=== PATIENT | female | born 1955 | race Caucasian/White ===

== ENCOUNTER → 2018-10-20 13:44 | Outpatient (CLI) | payer MEDICARE, SELFPAY ==
--- NOTE | 2018-10-20 13:54 | XR_ITS ---
XR chest 2V HISTORY: ITS.REASON: YEARLY [facility] SCREENING ORDERING PHYSICIAN: Irma Scott APRN PATIENT AGE: 63 years Technique: PA and lateral chest COMPARISON: No previous studies available for comparison FINDINGS: No focal pneumonia. No focal lesion However there isLess than optimal inspiration on both the PA and lateral view. This yields slight crowding markings at the lung bases particularly right infrahilar region and medial right lung base.. The diaphragm is only down to the the anterior fourth rib end on right. This Suboptimal inspiration slightly limits the study particularly on right base also note mild/moderate dextroscoliosis of the T-spine noted 15 to 20 degrees levocurvature mid T-spine, which may also contribute to the less expansion appearance right lung versus left . The erika and superior mediastinal structures appear appear satisfactory otherwise. No pleural effusion or pneumothorax. Normal pulmonary vascularity. Heart is upper normal in size borderline cardiomegaly but heart size is likely accentuated by less than optimal inspiration as well Chest wall unremarkable ribs unremarkable on this chest study. -------IMPRESSION Nothing definitely acute. Less than optimal inspiration, along with a mild levoscoliosis, crowd markings at right infrahilar region & medial right lung base-likely accounting for the current appearance here. Borderline cardiomegaly Heart size may also slightly accentuated by the suboptimal inspiration
== END ==
PROVIDERS: PCP Nurse Practitioner Family; Visit Provider Nurse Practitioner Family
DX: Z12.2 Encounter for screening for malignant neoplasm of respiratory organs (principal)
CPT/HCPCS: 71046

== ENCOUNTER 2019-08-03 10:00 | Outpatient (RCR) | payer MEDICARE, SELFPAY | END 2019-08-03 10:05 | disposition home or self-care (01) | LOC: OT 10:00 | PROVIDERS: PCP Nurse Practitioner Family; Visit Provider Orthopaedic Surgery | DX: S42.202D Unspecified fracture of upper end of left humerus, subsequent encounter for fracture with routine healing (principal) | CPT/HCPCS: 97014; 97110; 97140; 97164; 97166; G0283 ==

== ENCOUNTER 2020-04-28 13:17 | Emergency (ER) | payer MEDICARE, SELFPAY ==
[2020-04-28 13:40] VITALS: BP 161/65; PULSE 66; RESP 14; TEMP 36.2; O2SAT 97; BMI 28.3
--- NOTE | 2020-04-28 14:13 | HMH.EDUTC ---
[facility] [place] Impression: Exposure to COVID-19 virus Sinusitis Qualifiers: Sinusitis location: unspecified location Chronicity: acute Recurrence: non-recurrent Qualified Code(s): J01.90 - Acute sinusitis, unspecified Disposition: Home, Self-Care Condition on Discharge: Good Instructions: Sinusitis, DI for Sinusitis, Preventing the Spread of Coronavirus Discharge Instructions Additional Instructions: Drink plenty of fluids. Take tylenol or ibuprofen for pain or fever. Take the medications as directed. Follow up with your regular doctor. GO TO THE ER FOR ANY WORSENING SYMPTOMS Prescriptions: Benzonatate [Tessalon Perle 100mg Cap] 100 mg PO TIDP PRN #30 cap PRN Reason: Cough Transmission Status: Received by [id number] Azithromycin [Z-Gilberto 250mg Tab*] 250 mg PO UD DOSE PK #6 tab Transmission Status: Received by [id number] Referrals: Irma Scott APRN [Primary Care Provider] - Time of Disposition: 14:14 Medical Decision Making - Medical Records Medical records reviewed: No: I reviewed the patient's medical records. - Geoff Inquiry Pt receiving controlled substance: No Vital Signs: 04/28/20 13:40 04/28/20 14:16 Temperature 97.1 F L 97.1 F L Temperature Source Oral Pulse Rate 66 Pulse Rate [Right Brachial] 66 Respiratory Rate 14 14 Blood Pressure 161/65 H Blood Pressure [Right Arm] 161/65 H Blood Pressure Mean [Right Arm] 97 Blood Pressure Source [Right Arm] Automatic Cuff Blood Pressure Position [Right Arm] Sitting 02 Sat by Pulse Oximetry 97 Oxygen Delivery Method Room Air Orders (Tests/Meds): ORDERS Category Date Time Status Covid-19 Nasal PCR Sendout Tristan Routine Lab 04/28/20 13:30 [place] [facility] [place] - General Stated complaint: wants covid test Time Seen by Provider: 04/28/20 14:13 Mode of Arrival: Ambulatory Source of Information: Patient Limitations: No Limitations Description of Symptoms (Recalled from Triage Doc. by RN): PATIENT REQUESTING COVID TEST D/T EXPOSURE; C/O SINUS DRAINAGE HEENT Symptoms (Recalled from RN notes): Yes Resp Symptoms (Recalled from RN notes): No Skin Symptoms (Recalled from RN notes): No MS Symptoms (Recalled from RN notes): No Functional Status (Recalled from RN notes): WNL - History of Present Illness Provider Complaint: She c/o sinus congestion and left ear pain for the past 2 days. - Related Data Previous Rx's Medication Instructions Recorded Azithromycin [Z-Gilberto 250mg Tab*] 250 mg PO UD DOSE PK #6 tab 04/28/20 Benzonatate [Tessalon Perle 100mg 100 mg PO TIDP PRN #30 cap 04/28/20 Cap] Allergies Allergy/AdvReac Type Severity Reaction Status Date / Time No Known Allergies Allergy Verified 04/28/20 14:08 - Worker's Comp Is this a Worker's Comp case?: No [facility] History - Hepatitis A Screen Drug use history?: No High risk sexual behaviors?: No History of sexually transmitted infection?: No Currently employed?: No Childcare worker?: No Do you have indoor plumbing?: Yes Do you have electricity?: Yes Attestation statement:: This patient has been screened for Hepatitis A risk factors. I have reviewed the patient's past medical history: Yes - Social History Alcohol Intake: never Occupational Status: other ROS Obtained: Yes All systems reviewed & no additional complaints - Constitutional Constitutional: Reports chills, Denies fever(s), Reports poor appetite, Reports malaise - Eyes Eyes: Denies eye discharge - ENT Ears, Nose, Mouth, and Throat: Reports as per HPI - Cardiovascular Cardiovascular: Denies chest pain - Respiratory Respiratory: No chest congestion, Yes cough, No dyspnea, No stridor, No wheezing - Gastrointestinal Gastrointestingal: Denies: abdominal pain, diarrhea, nausea, vomiting Physical Exam - General General appearance: alert, in no apparent distress - Head Head exam: atraumatic, normocephalic, normal inspection - Eye E
[2020-04-28 14:16] VITALS: BP 161/65; PULSE 66; RESP 14; TEMP 36.2; O2SAT 97
[2020-04-29 13:13] LABS: Covid-19 Nasal PCR Sendout Lex NOT DETECTED
== END 2020-04-28 14:22 | disposition home or self-care (01) ==
PROVIDERS: Emergency Provider Nurse Practitioner Family; PCP Nurse Practitioner Family
DX: Z20.828 Contact with and (suspected) exposure to other viral communicable diseases (principal); J01.90 Acute sinusitis, unspecified
CPT/HCPCS: G0463; 99201; U0004

== ENCOUNTER 2020-05-03 11:06 | Emergency (ER) | payer MEDICARE, SELFPAY ==
[2020-05-03 11:30] VITALS: BP 132/85; PULSE 89; RESP 20; TEMP 36.8; O2SAT 98; BMI 28.3
[2020-05-03 11:53] VITALS: BP 132/85; PULSE 89; RESP 20; TEMP 36.8; O2SAT 98
--- NOTE | 2020-05-03 11:56 | HMH.EDUTC ---
[facility] [place]ression: Exposure to COVID-19 virus Disposition: Home, Self-Care Condition on Discharge: Good Instructions: Preventing the Spread of Coronavirus Discharge Instructions Additional Instructions: isolate until test results if symptoms worsen return or be seen in ed Referrals: Irma Scott APRN [Primary Care Provider] - Time of Disposition: 12:06 Medical Decision Making - Geoff Inquiry Pt receiving controlled substance: No Vital Signs: 05/03/20 11:30 05/03/20 11:53 Temperature 98.3 F 98.3 F Temperature Source Oral Pulse Rate 89 Pulse Rate [Left Brachial] 89 Respiratory Rate 20 20 Blood Pressure 132/85 Blood Pressure [Left Arm] 132/85 Blood Pressure Mean [Left Arm] 100 Blood Pressure Source [Left Arm] Automatic Cuff Blood Pressure Position [Left Arm] Sitting 02 Sat by Pulse Oximetry 98 Oxygen Delivery Method Room Air Orders (Tests/Meds): ORDERS Category Date Time Status Covid-19 Nasal PCR ([facility]) Routine Lab 05/03/20 11:55 Ordered [facility] [place] - General Chief complaint: [facility] Stated complaint: exposed with headache,cough,fever Time Seen by Provider: 05/03/20 11:56 Mode of Arrival: Ambulatory Source of Information: Patient Limitations: No Limitations Description of Symptoms (Recalled from Triage Doc. by RN): PATIENT REQUESTING COVID TEST D/T EXPOSURE; C/O DRY COUGH, HEADACHE, FEVER, CONGESTION, SORE THROAT, SOA, AND NAUSEA SINCE TUESDAY HEENT Symptoms (Recalled from RN notes): Yes Resp Symptoms (Recalled from RN notes): Yes Skin Symptoms (Recalled from RN notes): No MS Symptoms (Recalled from RN notes): No Functional Status (Recalled from RN notes): WNL - History of Present Illness Provider Complaint: 64 yr old female presents for covid test. Pt states she was in a few days ago with her boyfriend and she tested neg and he was positive. pt states she had a headache, sore throat and fever. - Related Data Home Medications Medication Instructions Recorded Confirmed Oxybutynin Chloride [Ditropan 5mg 5 mg PO DAILY 05/03/20 05/03/20 tablet] Simvastatin [Zocor 40mg] 40 mg PO HS 05/03/20 05/03/20 hydroCHLOROthiazide [HCTZ 12.5mg 12.5 mg PO DAILY 05/03/20 05/03/20 cap] Allergies Allergy/AdvReac Type Severity Reaction Status Date / Time No Known Allergies Allergy Verified 04/28/20 14:08 - Worker's Comp Is this a Worker's Comp case?: No [facility] History - Hepatitis A Screen Drug use history?: No High risk sexual behaviors?: No History of sexually transmitted infection?: No Currently employed?: No Childcare worker?: No Do you have indoor plumbing?: Yes Do you have electricity?: Yes Attestation statement:: This patient has been screened for Hepatitis A risk factors. I have reviewed the patient's past medical history: Yes - Social History Alcohol Intake: never Occupational Status: other ROS Obtained: Yes Systems reviewed as appropriate & no additional complaints - Constitutional Constitutional: Reports system reviewed and no additional complaints, except as docu, Reports body ache, Reports fever(s) - Eyes Eyes: Reports system reviewed and no additional complaints, except as docu, Denies dry eyes - ENT Ears, Nose, Mouth, and Throat: Reports system reviewed and no additional complaints, except as docu, Reports headache(s), Reports sore throat - Cardiovascular Cardiovascular: Reports system reviewed and no additional complaints, except as docu, Denies chest pain - Respiratory Respiratory: Yes system reviewed and no additional complaints, except as docu, No change in phlegm color - Gastrointestinal Gastrointestingal: Reports: system reviewed and no additional complaints, except as docu. Denies: nausea - Genitourinary Female Genitourinary: Reports system reviewed and no additional complaints, except as docu - Musculoskeletal Musculoskeletal: Reports system reviewed and no additional complaints
--- NOTE | 2020-05-03 17:33 | PC.NURSE ---
patient notified of positive covid results
== END 2020-05-03 12:12 | disposition home or self-care (01) ==
PROVIDERS: Emergency Provider Nurse Practitioner Family; PCP Nurse Practitioner Family
DX: U07.1 COVID-19 (principal); E78.5 Hyperlipidemia, unspecified
CPT/HCPCS: G0463; 99201; U0003

== ENCOUNTER → 2020-10-07 15:19 | Outpatient (CLI) | payer MEDICARE, SELFPAY ==
--- NOTE | 2020-10-07 15:30 | XR_ITS ---
PROCEDURE: XR LUMBAR SPINE MIN 4V CLINICAL INDICATION: LOW BACK PAIN COMPARISON: No exams were available for comparison FINDINGS: No acute fractures or traumatic subluxation. Multilevel degenerative changes of the lumbar spine with endplate sclerosis, loss of disc height, facet joint arthropathy and anterior osteophyte formation. Bone density is normal. Paravertebral soft tissues are unremarkable. IMPRESSION: Degenerative changes of the lumbar spine. No acute fractures or listhesis. Dictated by: Liliane Joseph 10/07/2020 16:50 Liliane Joseph in [place] 10/07/2020 16:50
--- NOTE | 2020-10-07 15:30 | XR_ITS ---
PROCEDURE: XR HIP LT 2-3V W/PELVIS CLINICAL INDICATION: NOÉ HIP PAIN COMPARISON: No exams were available for comparison FINDINGS: No fracture or dislocation is evident. No significant degenerative change. No lytic or blastic change. Unremarkable soft tissues. Degenerative changes of the visualized lumbar spine. Moderate fecal retention of the rectosigmoid colon. IMPRESSION: No acute findings. Dictated by: Liliane Joseph 10/07/2020 16:51 Liliane Joseph in [facility] 10/07/2020 16:51
--- NOTE | 2020-10-07 15:30 | XR_ITS ---
PROCEDURE: XR KNEE RT 3V CLINICAL INDICATION: RT KNEE PAIN COMPARISON: No exams were available for comparison FINDINGS: No fracture or dislocation. No lytic or blastic change. There is normal mineralization. Tricompartmental degenerative changes with the loss of joint space, worse in the medial compartment, and osteophyte formation. Small suprapatellar joint effusion. Soft tissues are otherwise unremarkable. Other findings:None. IMPRESSION: Degenerative changes of the right knee joint, worse in the medial compartment. Dictated by: Liliane Joseph 10/07/2020 16:52 Liliane Joseph in [facility] 10/07/2020 16:52
--- NOTE | 2020-10-07 15:30 | XR_ITS ---
PROCEDURE: XR HIP RT 2-3V W/PELVIS CLINICAL INDICATION: NOÉ HIP PAIN COMPARISON: No exams were available for comparison FINDINGS: No fracture or dislocation is evident. Minor subchondral sclerosis. No significant degenerative change. No lytic or blastic change. Unremarkable soft tissues. IMPRESSION: No acute findings. Dictated by: Liliane Joseph 10/07/2020 16:50 Liliane Joseph in [facility] 10/07/2020 16:50
== END ==
PROVIDERS: PCP Nurse Practitioner Family; Visit Provider Nurse Practitioner Family
DX: M54.42 Lumbago with sciatica, left side (principal); M25.552 Pain in left hip; M25.551 Pain in right hip; M25.561 Pain in right knee
CPT/HCPCS: 72110; 73502; 73562

== ENCOUNTER → 2020-10-17 08:27 | Outpatient (CLI) | payer MEDICARE, SELFPAY ==
--- NOTE | 2020-10-17 08:31 | MR_ITS ---
PROCEDURE INFORMATION: Exam: MR Right Lower Extremity Joint Without Contrast, Knee Exam date and time: 10/17/2020 8:31 AM Age: 65 years old Clinical indication: Pain; Knee; Right; Prior surgery; Surgery date: 6+ months; Additional info: RT knee pain S/P knee surgery. PT C/O anterior and posterior RT knee pain with HX of surgery to repair torn cartilage in the RT knee 30 + years ago. PT denies recent injury or trauma but does have HX of multiple injuries to the RT knee in the past. Prior RT knee xrays done 10/07/2020 TECHNIQUE: Imaging protocol: MR of the Right lower extremity joint without contrast. Exam focused on the knee. COMPARISON: CR XR KNEE RT 3V 10/07/2020 3:38 PM FINDINGS: Bones/joints: No acute fracture. No dislocation. Anterior translation of tibia with respect to femur. Mild degenerative changes of patellofemoral compartment, characterized by small marginal osteophytes, mild signal changes/minimal surface fibrillation of cartilage lining patella. Moderate to severe degenerative changes of medial femorotibial compartment, characterized by mild joint space narrowing, small marginal osteophytes, complete denudation of cartilage lining medial femoral condyle and medial tibial plateau, mild subchondral edema. Early degenerative changes of lateral femorotibial compartment, characterized by mild signal changes within articular cartilage lining lateral femoral condyle and lateral tibial plateau. Fluid: Small to moderate joint effusion with several small intraarticular bodies. Large Hurd's cyst, roughly 8.0 x 4.1 x 5.2 cm. Medial meniscus: Extensive maceration/truncation of anterior horn, body, posterior horn Lateral meniscus: Intrasubstance signal abnormality. No definite tear. Anterior cruciate ligament: Nonvisualization of ligament. Posterior cruciate ligament: Intact. Medial capsule and supporting structures: Intact. Lateral capsule and supporting structures: Intact. Extensor mechanism of knee: Intact. Muscles: Unremarkable. Soft tissues: Mild edema within subcutaneous tissues. IMPRESSION: 1. Tricompartment osteoarthritis, most pronounced within medial femorotibial compartment. 2. Medial meniscus tear. 3. ACL tear, chronic. 4. Joint effusion with intraarticular bodies. 5. Hurd's cyst.
--- NOTE | 2020-10-17 09:46 | US_ITS ---
PROCEDURE: US THYROID CLINICAL INDICATION: THYROMEGALY COMPARISON: No exams were available for comparison FINDINGS: Right lobe: 4.5 x 2 x 2.2 cm. 4 mm isoechoic nodule upper pole. Left lobe: 4.7 x 1.7 x 1.9 cm. 5 mm isoechoic nodule with peripheral hypoechoic halo upper pole. There is some heterogeneous echogenicity of the left lobe. 1 x 0.5 cm isoechoic nodule lower pole TR 2. Isthmus: Unremarkable Additional findings: IMPRESSION: Mildly enlarged thyroid gland on both sides. Bilateral small TR 2 nodules. Twelve month follow-up suggested. Dictated by: Hitesh Mayes MD 10/18/2020 07:36 Hitesh Mayes MD in [place] 10/18/2020 07:36
== END ==
PROVIDERS: PCP Nurse Practitioner Family; Visit Provider Nurse Practitioner Family
DX: M25.561 Pain in right knee (principal); Z98.890 Other specified postprocedural states; E01.0 Iodine-deficiency related diffuse (endemic) goiter
CPT/HCPCS: 73721; 76536

== ENCOUNTER 2021-08-28 16:35 | Emergency (ER) | payer MEDICARE, SELFPAY ==
[2021-08-28 16:36] VITALS: BP 166/119; PULSE 79; RESP 16; TEMP 36.6; O2SAT 98; BMI 29.1
--- NOTE | 2021-08-28 16:59 | CT_ITS ---
PROCEDURE INFORMATION: Exam: CT Maxillofacial Without Contrast Exam date and time: 08/28/2021 5:22 PM Age: 65 years old Clinical indication: Injury or trauma; Fall; Blunt trauma (contusions or hematomas); Cheek bone and head/scalp and lip/oral cavity; Without loss of consciousness; Upper; Injury date: 08/28/2021; Injury details: Patient feel face first onto concrete; Swelling/bleeding at right side of face; Additional info: Fall, injury TECHNIQUE: Imaging protocol: Computed tomography images of the face without contrast. Radiation optimization: All CT scans at this facility use at least one of these dose optimization techniques: automated exposure control; mA and/or kV adjustment per patient size (includes targeted exams where dose is matched to clinical indication); or iterative reconstruction. COMPARISON: CT HEAD/BRAIN WO CON 08/28/2021 5:19 PM FINDINGS: Orbital cavities: Orbits are normal. Globes are unremarkable. Bones/joints: No acute fracture. Paranasal sinuses: Normal. No air-fluid levels. Soft tissues: Right supraorbital subgaleal hematoma. IMPRESSION: Right supraorbital subgaleal hematoma.
--- NOTE | 2021-08-28 16:59 | CT_ITS ---
PROCEDURE INFORMATION: Exam: CT Cervical Spine Without Contrast Exam date and time: 08/28/2021 5:26 PM Age: 65 years old Clinical indication: Injury or trauma; Fall; Blunt trauma; Injury date: 08/28/2021; Injury details: Patient feel face first onto concrete; Swelling/bleeding at right side of face; Additional info: Fall, injury TECHNIQUE: Imaging protocol: Computed tomography images of the cervical spine without contrast. Radiation optimization: All CT scans at this facility use at least one of these dose optimization techniques: automated exposure control; mA and/or kV adjustment per patient size (includes targeted exams where dose is matched to clinical indication); or iterative reconstruction. COMPARISON: CT FACIAL BONES WO CON 08/28/2021 5:22 PM FINDINGS: Vertebrae: No acute fracture. Normal alignment. C2-C3: No significant disc protrusion. No severe spinal canal stenosis. No significant neural foraminal narrowing. C3-C4: Severe disc space narrowing. Mild disc protrusion. No severe spinal canal stenosis. No significant neural foraminal narrowing. C4-C5: No significant disc protrusion. No severe spinal canal stenosis. No significant neural foraminal narrowing. C5-C6: Severe disc space narrowing. No significant disc protrusion. No severe spinal canal stenosis. No significant neural foraminal narrowing. C6-C7: Severe disc space narrowing. No significant disc protrusion. No severe spinal canal stenosis. No significant neural foraminal narrowing. C7-T1: No significant disc protrusion. No severe spinal canal stenosis. No significant neural foraminal narrowing. Soft tissues: Unremarkable. Lungs: Lung apices are normal. IMPRESSION: 1. No acute traumatic findings. 2. Degenerative discs C3-C4, C5-C6, and C6-C7.
--- NOTE | 2021-08-28 16:59 | CT_ITS ---
PROCEDURE INFORMATION: Exam: CT Head Without Contrast Exam date and time: 08/28/2021 5:19 PM Age: 65 years old Clinical indication: Injury or trauma; Fall; Blunt trauma (contusions or hematomas); Consciousness not specified; Patient HX: Abrasion to right cheek and eyebrow; Additional info: Fall, injury TECHNIQUE: Imaging protocol: Computed tomography of the head without contrast. Radiation optimization: All CT scans at this facility use at least one of these dose optimization techniques: automated exposure control; mA and/or kV adjustment per patient size (includes targeted exams where dose is matched to clinical indication); or iterative reconstruction. COMPARISON: CR ALBERT FACIAL BONES 3 VIEWS 03/24/2017 3:12 PM FINDINGS: Brain: No acute traumatic intracranial injury detected. Cerebral ventricles: No ventriculomegaly. Paranasal sinuses: Visualized sinuses are unremarkable. No fluid levels. Mastoid air cells: Visualized mastoid air cells are well aerated. Bones/joints: Unremarkable. No acute fracture. Soft tissues: Right supraorbital subgaleal hematoma. IMPRESSION: 1. Right supraorbital subgaleal hematoma. 2. No acute traumatic intracranial injury detected.
[2021-08-28 17:00] VITALS: BP 179/112; PULSE 77; RESP 19; O2SAT 97
--- NOTE | 2021-08-28 17:11 | HMH.EDGENADL ---
ED Disposition Clinical Impression: Facial contusion Qualifiers: Encounter type: initial encounter Qualified Code(s): S00.83XA - Contusion of other part of head, initial encounter Facial hematoma Qualifiers: Encounter type: initial encounter Qualified Code(s): S00.83XA - Contusion of other part of head, initial encounter Contusion of left hand Qualifiers: Encounter type: initial encounter Qualified Code(s): S60.222A - Contusion of left hand, initial encounter Lip laceration Qualifiers: Encounter type: initial encounter Qualified Code(s): S01.511A - Laceration without foreign body of lip, initial encounter Disposition: Home, Self-Care Condition on Discharge: Good Instructions: DI for Closed Head Injury Additional Instructions: Ice 20 minutes 4 times a day to facial swelling. Sleep with head of bed elevated tonight. Tylenol or ibuprofen for pain. Clean wounds with soap and water daily. Apply antibiotic ointment to facial abrasions. Additional instructions for HEAD INJURY: See your physician as soon as possible for further evaluation. Return immediately if severe headache, vomiting, problems with vision or speech, numbness or weakness of the extremities, or severe neck pain. Referrals: Irma Scott APRN [Primary Care Provider] - - Critical Care Critical Care Time: No Attestation: On 08/28/21, the high probability of a clinically significant, sudden or life threatening deterioration of the following system(s) required my full and direct attention, intervention and personal management. The time I documented below is in addition to time spent performing reported procedures but includes the following listed in this critical care notation. Medical Decision Making - Geoff Inquiry Pt receiving controlled substance: No Vital Signs: 08/28/21 16:36 08/28/21 17:00 08/28/21 17:54 Temperature 97.8 F Temperature Source Oral Pulse Rate 77 79 Pulse Rate [Right Radial] 79 Respiratory Rate 16 19 16 Blood Pressure 179/112 H 194/111 H Blood Pressure [Right Arm] 166/119 H Blood Pressure Mean 135 126 Blood Pressure Mean [Right Arm] 134 Blood Pressure Source [Right Arm] Automatic Cuff Blood Pressure Position [Right Arm] Sitting 02 Sat by Pulse Oximetry 98 97 98 Oxygen Delivery Method Room Air 08/28/21 18:10 Temperature Temperature Source Pulse Rate 71 Pulse Rate [Right Radial] Respiratory Rate 18 Blood Pressure 163/98 H Blood Pressure [Right Arm] Blood Pressure Mean 119 Blood Pressure Mean [Right Arm] Blood Pressure Source [Right Arm] Blood Pressure Position [Right Arm] 02 Sat by Pulse Oximetry 98 Oxygen Delivery Method - Radiology Data #1 Image(s): Hand Image Reviewed: Yes I have reviewed radiologist's interpretation Procedure(s): XR hand LT min 3V Accession Number(s): [id number] cc: Eleazar Porter DO; Irma Scott APRN~ PROCEDURE INFORMATION: Exam: XR Left Hand Exam date and time: 08/28/2021 5:28 PM Age: 65 years old Clinical indication: Pain; Hand; Left; Additional info: Fall TECHNIQUE: Imaging protocol: XR Left hand. Views: 3 or more views. COMPARISON: No relevant prior studies available. FINDINGS: Bones/joints: There is no evidence of acute fracture. There is no evidence of joint malalignment or dislocation. Mild degenerative changes of the 1st carpometacarpal joint. Soft tissues: No soft tissue swelling. IMPRESSION: 1. No evidence of acute fracture. 2. No evidence of acute dislocation. 3. Mild degenerative changes of the 1st carpometacarpal joint. - CT Data CT Scan: Head, C-Spine, Other (facial) Time Received: 18:[address] Reviewed: Yes: I have viewed the radiologist's interpretation Findings Narrative: PROCEDURE INFORMATION: Exam: CT Head Without Contrast Exam date and time: 08/28/2021 5:19 PM Age: 65 years old Clinical in
[2021-08-28 17:54] VITALS: BP 194/111; PULSE 79; RESP 16; O2SAT 98
[2021-08-28 18:10] VITALS: BP 163/98; PULSE 71; RESP 18; O2SAT 98
[2021-08-28 18:30] VITALS: BP 171/100; PULSE 73; RESP 16; O2SAT 98
[2021-08-28 18:38] VITALS: BP 161/93; PULSE 76; RESP 16; TEMP 36.9; O2SAT 97
== END 2021-08-28 18:43 | disposition home or self-care (01) ==
PROVIDERS: Emergency Provider Emergency Medicine; PCP Nurse Practitioner Family
DX: S00.83XA Contusion of other part of head, initial encounter (principal); S60.222A Contusion of left hand, initial encounter; S01.511A Laceration without foreign body of lip, initial encounter; W01.0XXA Fall on same level from slipping, tripping and stumbling without subsequent striking against object, initial encounter; Y92.014 Private driveway to single-family (private) house as the place of occurrence of the external cause
CPT/HCPCS: 70450; 70486; 72125; 73130; 99284

== ENCOUNTER → 2021-09-17 14:18 | Outpatient (CLI) | payer MEDICARE, SELFPAY ==
--- NOTE | 2021-09-17 14:24 | XR_ITS ---
FINAL REPORT CLINICAL HISTORY: pain FINDINGS: RIGHT FOOT Three views of the right foot demonstrate no acute fracture or dislocation. There is severe degenerative change at the 1st metatarsophalangeal joint. There is mild degenerative change elsewhere in the foot. Calcaneal spurs are noted. IMPRESSION: Degenerative changes as above. Reviewed, Interpreted and Dictated by Leandro Salazar III, MD Transcribed by Parisa Petersen Authenticated by Leandro Salazar III, MD on 09/17/2021 03:40:08 PM [facility]
--- NOTE | 2021-09-17 14:24 | XR_ITS ---
FINAL REPORT CLINICAL HISTORY: pain FINDINGS: LEFT FOOT Three views of the left foot demonstrate no acute fracture or dislocation. There is severe degenerative change at the 1st metatarsophalangeal joint. There is mild degenerative change elsewhere in the foot. Calcaneal spurs are noted. There is a chronic calcification superior to the distal talus. IMPRESSION: Degenerative changes as above. Reviewed, Interpreted and Dictated by Leandro Salazar III, MD Transcribed by Parisa Petersen Authenticated by Leandro Salazar III, MD on 09/17/2021 03:40:12 PM [facility]
== END ==
PROVIDERS: PCP Nurse Practitioner Family; Visit Provider Podiatrist
DX: R52 Pain, unspecified (principal)
CPT/HCPCS: 73630

== ENCOUNTER 2022-05-13 11:00 | Outpatient (RCR) | payer MEDICARE, SELFPAY | END 2022-05-13 12:06 | disposition home or self-care (01) | LOC: PT 11:00 | PROVIDERS: PCP Nurse Practitioner Family; Visit Provider Nurse Practitioner Family | DX: M51.36 Other intervertebral disc degeneration, lumbar region (principal); M54.50 Low back pain, unspecified | CPT/HCPCS: 97010; 97014; 97035; 97110; 97140; 97163; 97164; G0283 ==

== ENCOUNTER → 2022-06-15 15:18 | Outpatient (CLI) | payer MEDICARE, SELFPAY | PROVIDERS: PCP Nurse Practitioner Family; Visit Provider Physician Assistant | DX: Z01.810 Encounter for preprocedural cardiovascular examination (principal); R94.31 Abnormal electrocardiogram [ECG] [EKG]; R00.0 Tachycardia, unspecified | CPT/HCPCS: 93225 ==

== ENCOUNTER → 2022-06-17 16:05 | Outpatient (CLI) | payer MEDICARE, SELFPAY ==
--- NOTE | 2022-06-17 16:12 | XR_ITS ---
FINAL REPORT CLINICAL HISTORY: PHYSICAL EXAMINATION, abn ekg, pre op FINDINGS: PA and lateral views of the chest are obtained. There is no prior exam for comparison. The cardiac and mediastinal silhouettes are within normal limits. The lungs are clear. There is no pleural effusion, pneumothorax, or acute osseous abnormality. IMPRESSION: No radiographic evidence of acute cardiac or pulmonary disease. Reviewed, Interpreted and Dictated by Monique Blevins MD Transcribed by Parisa Petersen Authenticated and [facility]
== END ==
PROVIDERS: PCP Nurse Practitioner Family; Visit Provider Nurse Practitioner Family
DX: Z01.818 Encounter for other preprocedural examination (principal)
CPT/HCPCS: 71046

== ENCOUNTER → 2022-06-25 06:27 | Outpatient (CLI) | payer MEDICARE, SELFPAY ==
--- NOTE | 2022-06-25 | CA_ITS ---
APPROVED REPORT Exam: Pharmacologic Technologist: Mattie Harper, Ht: 5 ft 5 in Wt: 185 lbs BSA: 1.91 m2 HR: 78 bpm BP: 163/96 mmHg Medical History Medical History: Hyperlipidemia Medications: Simvastatin,,,,, HCTZ,,,,, OxYbutynin,,,,, Clobetasol,,,,, Allergies: PCN,SULFA Cardiac Risk Factors: Hyperlipidemia Stress Test Details Test: LEXISCAN HR Resting HR: 78 bpm Max Heart Rate (APMHR): 152.013855 bpm Max HR Achieved: 107 bpm Target HR (85% APMHR): 129.967522 bpm % of APMHR: 70.39 Recovery HR: 62 bpm BP Resting BP: 163.0/96.0 mmHg Max BP: 163.0/96.0 mmHg Recovery BP: 116.0/50.0 mmHg ECG Clinical Exercise duration: 04:00 min Highest Stage Achieved: Exercise capacity: 1.0 METs Stress ECG Conclusion DURING INFUSION PATIENT HAD CHEST PAIN AND SOA. NO ARRHYTHMIAS/ECTOPY. <1.5MM ST CHANGE Test Summary REST . . . . . . . Sitting REST 10:42 . . 78 . 163/ 96 . . Stage 1 . . . . . . . Myoview Injected Stage 1 01:00 . . 97 . . . . Stage 2 01:00 . . 105 . 133/ 80 . . Stage 3 01:00 . . 100 . 125/ 75 . . Stage 4 01:00 . . 89 . 113/ 67 . Stop exercise at 04:00 RECOVERY 01:00 . . 79 . 130/ 53 . . RECOVERY 02:00 . . 68 . 116/ 50 . . RECOVERY 03:00 . . 68 . 116/ 50 . . RECOVERY 04:00 . . 62 . 121/ 64 . . RECOVERY 05:00 . . 65 . 103/ 67 . . RECOVERY 05:12 . . 63 . 103/ 67 . . Electronically signed by : Nikhil Sung MD 06/25/2022 12:05:34
--- NOTE | 2022-06-25 06:36 | NM_ITS ---
APPROVED REPORT Exam: Nuclear Stress Test Indication: HTN, HYPERLIPIDEMIA, SOB, ABN EKG Patient Location: Outpatient Stress Tech: Zoey Fonsecankson NM Tech:WILFREDO Garcia RT (R)(N)(M) Ht: 5 ft 5 in Wt: 184 lbs Bra Size: 38D HR: 75 bpm BP: 163/96 mmHg BSA: 1.91 m2 TID: 0.91 BMI: 30.6 History: HTN, HYPERLIPIDEMIA, SOB, ABN EKG Procedure: Patient received 0.4 mg of intravenous Lexiscan, resting heart rate 75 bpm, resting blood pressure 163/96 mmHg, with Lexiscan maximum heart rate achieved was 106 bpm which is Less than 85 % of the maximum predicted heart rate and blood pressure was 125/75 mmHg. PT C/O C.P. AND SOB WITH LEXISCAN Electrocardiogram Resting electrocardiogram shows sinus rhythm right ventricular conduction delay, with Lexiscan there is less than 1.[address] segment depression from the baseline EKG. The EKG portion of the Lexiscan is nondiagnostic. Cardiac Stress and Resting SPECT Images: Cardiac Stress and Resting SPECT images were obtained using technetium 99m Myoview 30.9 mCi stress and 10.53 mCi at rest. Gated SPECT for analysis of segmental wall motion and calculation of the ejection fraction also done. Prone images were also obtained. Cardiac stress and rest SPECT images show uniform myocardial activity without segmental perfusion abnormality, computer derived ejection fraction is 65% with no regional wall motion abnormality, right ventricle is mildly enlarged with normal contractility. Conclusion: 1. The EKG portion of the Lexiscan is nondiagnostic. 2. No scintigraphic evidence of reversible ischemia seen, computer derived ejection fraction 65% with no regional wall motion abnormality, right ventricle is mildly enlarged with normal contractility. 3. Normal Lexiscan Myoview study except right ventricle is mildly enlarged. Electronically signed by : Nikhil Sung MD 06/25/2022 12:11:37
--- NOTE | 2022-06-25 06:52 | CA_ITS ---
APPROVED REPORT EXAM: Comprehensive 2D, Doppler, and color-flow Echocardiogram Cascara Bark Cutter: Sydnie Fulton RDCS Ht: 5 ft 5 in Wt: 185lbs BSA: 1.91 BP: 164/84 mmHg Indications: ABN EKG,TACHYCARDIA,HTN,RBBB TDS SECONDARY TO BODY HABITUS 2D Dimensions LVOT 1.68 cm (M/F) 1.5-2.5 M-Mode Dimensions RVDd 2.65 cm (0.9-2.6) LA Diam 3.23 cm (1.9-4.0) LVDd 4.83 cm (3.5-5.7) Ao Diam 3.60 cm (2.0-3.7) LVDs 3.12 cm (3.5-5.7) IVSd 0.67 cm (0.6-1.1) PWd 0.91 cm (0.6-1.1) EF (Teich) 64.70% FS 35.40% EDV (Teich) 109.10 mL ESV (Teich) 38.50 mL LV Diastology E Decel Time 150.00 (160-240 msec) E/A Ratio 0.6 MED E' 4.80 (< 7 cm/sec) E'/MED E' Ratio 9.63 (>14) LAT E' 4.10 (<10 cm/sec) E/LAT E' Ratio 11.27 (>14) Mitral Valve MV E Max Emmanuel. 46.00 (40-130 cm/s) MV A Velocity 83.00 (40-130 cm/s) E/A Ratio 0.56 MV Decel. Time 150.00 (160-240 ms) MV PHT 44.00 ms Left Ventricle Left atrium is mildly enlarged, left ventricle is normal size, mild concentric left ventricular hypertrophy, estimated ejection fraction 55% with no regional wall motion abnormality, grade 1 diastolic dysfunction seen without tissue Doppler evidence of raise left atrial pressure. Right Ventricle Right atrium and right ventricle are mildly enlarged with normal contractility. Aortic Valve Aortic valve is minimally thickened and fibrosed there is no aortic stenosis or aortic insufficiency. Mitral Valve Mitral valve is grossly normal, there is trace mitral regurgitation. Tricuspid Valve Tricuspid grossly normal, there is trace tricuspid regurgitation tricuspid rotation request is inadequate for calculation of the right ventricular systolic pressure. Pulmonic Valve Pulmonic valve is poorly visualized. Great Vessels Aortic root is normal size. Inferior vena cava is normal size with normal inspiratory collapse. Pericardium No significant pericardial effusion noted. There is anterior echo-free space seen. Conclusion 1. Mild biatrial enlargement, normal left ventricular size, mild concentric left ventricular hypertrophy, estimated ejection fraction 55% with no regional wall motion abnormality, grade 1 diastolic dysfunction seen without tissue Doppler evidence of raise left atrial pressure. 2. Mildly enlarged right ventricle with normal contractility. 3. Trace mitral and tricuspid regurgitation. 4. No significant pericardial effusion. 5. Inferior vena cava is normal size with normal inspiratory collapse. Electronically signed by : Nikhil Sung MD 06/25/2022 16:05:18
== END ==
PROVIDERS: PCP Nurse Practitioner Family; Visit Provider Physician Assistant
DX: R00.0 Tachycardia, unspecified (principal); R94.31 Abnormal electrocardiogram [ECG] [EKG]; Z01.810 Encounter for preprocedural cardiovascular examination
CPT/HCPCS: 78452; 93017; 93306; A9502; J2785

== ENCOUNTER → 2022-06-30 14:33 | Outpatient (CLI) | payer MEDICARE, SELFPAY ==
[2022-06-30 15:31] LABS: Basophils # 0.1 K/mm3 (0-0.2); Eosinophils # 0.2 K/mm3 (0.0-0.4); Eosinophils % 2.4 % (0.1-12.0); Hemoglobin 15.4 g/dL (12.2-16.2); Lymphocytes # 1.7 K/mm3 (0.7-4.5); Lymphocytes % 20.6 % (10-50); Mean Corpuscular Hemoglobin 29.7 pg (27.0-31.2); Mean Corpuscular Volume 92.7 fl (81-99); Monocytes # 0.5 K/mm3 (0.1-1.0); Monocytes % 5.6 % (1.7-9.3); Neutrophils % 70.4 % (37.0-80.0); Platelet Count 344 K/mm3 (142-424); Red Blood Count 5.18 M/mm3 (4.20-5.40); Red Cell Distribution Width 13.8 % (11.5-17.5); White Blood Count 8.5 K/mm3 (4.8-10.8)
[2022-06-30 15:35] LABS: Activated Partial Thrombo Time 27.2 seconds (22.8-30.6); INR 0.96 (0.9-1.1); Prothrombin Time 10.4 seconds (10.1-12.5)
[2022-06-30 16:12] LABS: Alanine Aminotransferase 28 U/L (12-78); Albumin Level 4.3 g/dl (3.5-5.0); Albumin/Globulin Ratio 2.2 (1.1-1.8); Alkaline Phosphatase 83 U/L (38-126); Anion Gap 6.4 mEq/L (5-15); Aspartate Amino Transferase 25 U/L (14-36); Bilirubin,Total 0.6 mg/dl (0.2-1.3); Blood Urea Nitrogen 15 mg/dl (7-17); Carbon Dioxide 31 mmol/L (22.0-30.0); Chloride 104 mmol/L (98-107); Estimated Glomerular Filt Rate 99 ml/min (>60); GFR (African American) 120 ML/MIN (>60); Glucose 92 mg/dl (74-100); Potassium 3.4 mmoL/L (3.5-5.1); Sodium 138 mmol/L (136-145); Total Protein,Serum 6.3 g/dl (6.3-8.2)
== END ==
PROVIDERS: PCP Family Medicine; Visit Provider Family Medicine
DX: Z01.818 Encounter for other preprocedural examination (principal); R79.1 Abnormal coagulation profile
CPT/HCPCS: 36415; 80053; 85025; 85610; 85730

== ENCOUNTER 2022-10-07 11:00 | Outpatient (RCR) | payer MEDICARE, SELFPAY | END 2022-10-07 11:05 | disposition home or self-care (01) | LOC: PT 11:00 | PROVIDERS: PCP Family Medicine; Visit Provider Orthopaedic Surgery | DX: M25.561 Pain in right knee (principal); Z96.651 Presence of right artificial knee joint | CPT/HCPCS: 97010; 97014; 97016; 97110; 97112; 97140; 97163; 97164; 97530; G0283 ==

== ENCOUNTER 2023-07-11 13:00 | Outpatient (CLI) | payer MEDICARE, SELFPAY ==
[2023-07-11 14:22] LABS: Alanine Aminotransferase 22 U/L (12-78); Albumin Level 4.3 g/dl (3.5-5.0); Alkaline Phosphatase 107 U/L (38-126); Anion Gap 11.8 mEq/L (5-15); Aspartate Amino Transferase 23 U/L (14-36); Bilirubin,Total 0.9 mg/dl (0.2-1.3); Blood Urea Nitrogen 17 mg/dl (7-17); Calcium 9.6 mg/dl (8.4-10.2); Carbon Dioxide 28 mmol/L (22.0-30.0); Chloride 106 mmol/L (98-107); Chol/HDL Ratio 4.8 (1-3.5); Cholesterol 245 mg/dl (140-200); Estimated Glomerular Filt Rate 83 ml/min (>60); GFR (African American) 100 ML/MIN (>60); Globulin 2.1 g/dL (1.3-3.2); Glucose 125 mg/dl (74-100); HDL Cholesterol 51 mg/dl (40-60); Potassium 4.8 mmoL/L (3.5-5.1); Sodium 141 mmol/L (136-145); Total Protein,Serum 6.4 g/dl (6.3-8.2); Triglycerides 136 mg/dl (30-150); VLDL Cholesterol 27 mg/dL (0-40)
[2023-07-11 14:34] LABS: Direct LDL Cholesterol 137.75 mg/dL (100-129)
[2023-07-11 14:54] LABS: Thyroid Stimulating Hormone 1.02 uIU/mL (0.465-4.68)
[2023-07-11 22:30] LABS: Hemoglobin A1C 6.4 % (4.0-6.0)
== END 2023-07-11 23:59 ==
LOC: LAB.DROPOF 13:01
PROVIDERS: PCP Nurse Practitioner Family; Visit Provider Nurse Practitioner Family
DX: E78.5 Hyperlipidemia, unspecified (principal); I10 Essential (primary) hypertension; R30.0 Dysuria; R73.09 Other abnormal glucose
CPT/HCPCS: 80053; 80061; 83036; 84443; 87086

== ENCOUNTER 2023-09-06 10:00 | Outpatient (RCR) | payer MEDICARE, SELFPAY ==
--- NOTE | 2023-08-10 14:33 | HMH.PTOPEV ---
PT Outpatient Evaluation Rehab PT Outpatient Evaluation Start: 08/10/23 09:52 Freq: Status: Active Protocol: Document 08/10/23 10:37 BETY (Rec: 08/10/23 14:33 BETY [id number]) E-signed By Ramona Salas, PT Outpatient Therapy Subjective History Subjective History Pt is a 67 y/o female who reports onset of R groin and lateral hip pain ~2 months ago after getting into a tall bunk bed. Pt reports onset of pain the next day. Pt states she had a hip xray a couple weeks ago and was told she had a spot on the hip, denies known fractures. Pt denies catching/clicking/popping of the hip or numbness/tingling of her leg. Pt reports gradual improvement of pain since onset. Pt reports pain is aggravated only by donning her shoes/socks and getting up from a low surface. Pt reports she has been fairly inactive since the injury and has been avoiding certain activities so she does not provoke or worsen pain. Medical History: Hypertension, Hyperlipidemia, R TKA ~1 year ago per pt New diagnosis of cancer in past 12 No months? Chief Complaint Pain,Stiff Symptom Type Ache,Sharp Symptoms Relieved By Rest/Positioning,Ice Symptoms Aggravated By Physical Activity Prior Functional Limitations None Current Functional Limitations Dressing,Squatting Symptom Description Intermittent Level of pain today (0-10) 0 Pain scale - at its best (0-10) 0 Pain scale - at its worst (0-10) 4 Hip/Knee Eval Gait Observation General Gait Pattern Observation No Deviations/Normal Assistive Device Assistive Devices None / NA Palpation Tenderness right Knee Palpation Overall Comment none noted this date MMT Hip Flexion Strength Grade 4 Good Hip Abduction Strength Grade 4 Good Hip Adduction Strength Grade 4 Good Hip Extension Strength Grade 4 Good Knee Extension Strength Grade 5 Normal Knee Flexion Strength Grade 5 Normal ROM Hip Flexion w/Knee Flexed Active Range 115 of Motion (degrees) Hip External Rotation Active Range of 45 Motion (degrees) Hip Internal Rotation Active Range of 45 Motion (degrees) Knee Extension Active Range of Motion ( 0 degrees) Knee Flexion Active Range of Motion ( 115 degrees) Special Tests Hip Scouring (Quadrant) Test Positive Right Neel Test Positive Lower Extremity Functional Index Activities Today, do you or would you have any difficulty at all with: a.Any of your usual work, housework or Moderate difficulty school activities b. Your usual hobbies, recreational or Quite a bit of difficulty sporting activities c. Getting into or out of the bath Extreme difficulty or unable to perform activity d. Walking between rooms No difficulty e. Putting on your shoes or socks Moderate difficulty f. Squatting Quite a bit of difficulty g. Lifting an object, like a bag of No difficulty groceries from the floor h. Performing light activities around A little bit of difficulty your home i. Performing heavy activities around Quite a bit of difficulty your home j. Getting into or out of a car A little bit of difficulty k. Walking 2 blocks Moderate difficulty l. Walking a mile Quite a bit of difficulty m. Going up or down 10 stairs (about 1 A little bit of difficulty flight of stairs) n. Standing for 1 hour Moderate difficulty o. Sitting for 1 hour No difficulty p. Running on even ground Extreme difficulty or unable to perform activity q. Running on uneven ground Extreme difficulty or unable to perform activity r. Making sharp turns while running fast Extreme difficulty or unable to perform activity s. Hopping Extreme difficulty or unable to perform activity t. Rolling over in bed Moderate difficulty LEFI Score Lower Extremity Functional Index Score 35 Outpatient Therapy Assessment Impairments Problems/Impairmments Impaired Strength,Impaired Transfers,Impaired Dressing, Impaired Squatting,Subjective C/O Pain,Impaired Self Care/ Self Management Prognosis Rehab Potential Good Clinical Impression Consistent with Diagnosis Yes Short Term Goals Number of Weeks 2 Improve Self Care/Self Management Yes Patient to be Ind w/ HEP Yes Intermediate Goals Number of Weeks 4 Increase Strength Yes: Improve RLE MMT to 4+-5/5 grossly to assist with function Improve Transfers Yes: ability to get up from low level surface such as toilet without pain Improve LEFI Score Yes: Improve score to 50/80 to improve overall QOL Decrease Subjective C/O Pain Yes: Improve pain at worst to 1-2/10 to improve overall QOL Outpatient Therapy Plan of Care Treatment Plan May Include Therapeutic Exercise Including Home Yes Exercise Program Manual Therapy Techniques Yes Neuromuscular Re-education Yes Therapeutic Activities to Return to Yes Previous Functional/Work Level ADL/Self Care Education Yes Dry Needling Yes Thermal Modalities Yes Electrical Stimulation Yes Ultrasound/Phonophoresis Yes Iontophoresis Yes Massage Yes Group Therapy for Medicare Yes Eval/Re-Eval Yes Frequency Times per week 1-2 Duration Number of Weeks 4 Addendums This patient is a candidate for social No or vocational rehab? Patient/Guardian verbally acknowledges Yes understanding of treatment program and consents to further treatment? Patient/Guardian verbally acknowledges Yes understanding of diagnosis, prognosis and goals for treatment? Eval Complexity PT Charges 95407 - Low Complexity Shoulder/Elbow Eval Shoulder Objective Measurements Elbow Objective Measurements PHYSICIAN CERTIFICATION: I certify the specified therapy services for Nasreen Lowery are required, authorized, and reviewed every 30 days.
--- NOTE | 2023-09-06 10:55 | HMH.RHREAS ---
Rehab Reassessment Rehab OP Re-assessment Start: 08/10/23 09:52 Freq: Status: Active Protocol: Document 09/06/23 10:07 BETY (Rec: 09/06/23 10:53 BETY [id number]) E-signed By Ramona Salas PT Lower Extremity Functional Index Activities Today, do you or would you have any difficulty at all with: a.Any of your usual work, housework or A little bit of difficulty school activities b. Your usual hobbies, recreational or A little bit of difficulty sporting activities c. Getting into or out of the bath Quite a bit of difficulty d. Walking between rooms No difficulty e. Putting on your shoes or socks A little bit of difficulty f. Squatting A little bit of difficulty g. Lifting an object, like a bag of No difficulty groceries from the floor h. Performing light activities around No difficulty your home i. Performing heavy activities around Moderate difficulty your home j. Getting into or out of a car A little bit of difficulty k. Walking 2 blocks A little bit of difficulty l. Walking a mile Moderate difficulty m. Going up or down 10 stairs (about 1 A little bit of difficulty flight of stairs) n. Standing for 1 hour Moderate difficulty o. Sitting for 1 hour No difficulty p. Running on even ground Extreme difficulty or unable to perform activity q. Running on uneven ground Extreme difficulty or unable to perform activity r. Making sharp turns while running fast Extreme difficulty or unable to perform activity s. Hopping Quite a bit of difficulty t. Rolling over in bed Moderate difficulty LEFI Score Lower Extremity Functional Index Score 47 Rehab Re-assessment Subjective Subjective Pt reports she feels 90% improved since starting PT. Pt reports she has been compliant with her HEP. Pt reports R hip pain at worst as 2/10 with quick, sudden movements. Objective Objective Notes No tenderness to palpation noted of the R hip complex RLE MMT: 4+/5 grossly Assessment Progress Assessment Progressing as Expected Assessment Notes Pt has attended 6 PT visits 1x /week along with a HEP. Treatment sessions have consisted of aerobic exercise, hip/core strengthening, LE stretching, and modalities with good tolerance. Pt demonstrated improved subjective report of pain, R hip strength, and LEFS score this date compared to the initial evaluation. Pt met most PT goals and is appropriate to discharge to independent [facility] at this time. Patient goals met ST/2 LT/4 Goals Not Met LEFS score Revised Goals n/a Plan Plan Discharge to independent HEP Time and Billing Re-Eval Time 10 Re-Eval Billing Units 1 PHYSICIAN CERTIFICATION: I certify the specified therapy services for Nasreen Francisco Lowery are required, authorized, and reviewed every 30 days.
== END 2023-09-06 11:10 | disposition home or self-care (01) ==
LOC: PT 10:00
PROVIDERS: Visit Provider Nurse Practitioner Family
DX: M25.561 Pain in right knee (principal)
CPT/HCPCS: 97010; 97110; 97163; 97164; 97530

== ENCOUNTER 2023-09-06 11:00 | Outpatient (RCR) | payer MEDICARE, SELFPAY ==
--- NOTE | 2023-08-10 11:49 | HMH.OTOPEV ---
OT Inpatient Evaluation Rehab OT Outpatient Eval Start: 08/10/23 11:37 Freq: Status: Active Protocol: Document 08/10/23 11:40 [email or web address] (Rec: 08/10/23 11:46 [email or web address] [id number]) E-signed By Gabby Andres, OT Outpatient Therapy Subjective History Subjective History 67 year old female referred to skilled OP OT services for R arm pain. Patient stated to have R arm pain since Jan 2023 after feeling a 'pop' in the right bicep area when attempting to get off a rocking boat. Patient stated, it hurt for a while after I felt it pop but it is better. AROM of R UE shld, elbow, wrist is WFL. New diagnosis of cancer in past 12 No months? Chief Complaint Pain,Weakness Symptom Type Ache Symptoms Relieved By Nothing Symptoms Aggravated By Physical Activity Prior Functional Limitations None Current Functional Limitations Reaching,Lifting,Recreation Activity Symptom Description Constant and Continuous Level of pain today (0-10) 4 Pain scale - at its best (0-10) 4 Pain scale - at its worst (0-10) 5 Shoulder/Elbow Eval Shoulder Objective Measurements Shoulder MMT Right Shoulder Abduction Strength Grade 3- Fair- Shoulder Extension Strength Grade 3- Fair- Shoulder Flexion Strength Grade 3- Fair- Shoulder Horizontal Abduction Strength 3- Fair- Grade Infraspinatus/Teres Minor Strength Grade 3- Fair- Shoulder External Rotation Strength 3- Fair- Grade Shoulder Internal Rotation Strength 3- Fair- Grade Elbow Objective Measurements QuickDASH Activities Please rate your ability to do the following activities in the last week by selecting the number below the appropriate response. 1. Open a tight or new jar. Mild difficulty 2. Do heavy knife setter (e.g., wash Mild difficulty diego, floors). 3. Carry a shopping bag or briefcase. Moderate difficulty 4. Wash your back. Mild difficulty 5. Use a knife to cut food. No difficulty 6. Recreational activities in which you Mild difficulty take some force or impact through your arm, shoulder, or hand (e.g., golf, hammering, tennis, etc.). 7. During the past week, to what extent Slightly has your arm, shoulder or hand problem interfered with your normal social activities with family, friends, neighbors or groups? 8. During the past week, were you Slightly limited limited in your work or other regular daily activites as a result of your arm, shoulder or hand problem? 9. Arm, shoulder or hand pain. Mild 10. Tingling (pins and needles) in your None arm, shoulder or hand. 11. During the past week, how much Mild difficulty difficulty have you had sleeping because of the pain in your arm, shoulder or hand? Quick DASH 21 OT Outpatient Assessment Impairments Problems/Impairments Impaired Strength,Subjective C /O Pain Prognosis Rehab Potential Good Clinical Impression Consistent with Diagnosis Yes Short Term Goals Number of Weeks 2 Increase Strength Yes: Improve R UE shld strength to 3+ to 4-/5 throughout Decrease Subjective C/O Pain Yes: 4/10 pain at worst Patient to be Ind w/ Advanced HEP Yes: Strengthening Improve Quick Dash Score Yes: 18 Detention Goals Number of Weeks 4 Increase Range of Motion Yes: Improve R UE shld strength to 4-/5 throughout Decrease Subjective C/O Pain Yes: 3/10 pain at worst Patient to be Ind w/ Advanced HEP Yes: Advance strengthening Improve Quick Dash Score Yes: 10 Outpatient Therapy Plan of Care Treatment Plan May Include Therapeutic Exercise Including Home Yes Exercise Program Manual Therapy Techniques Yes Therapeutic Activities to Return to Yes Previous Functional/Work Level Thermal Modalities Yes Electrical Stimulation Yes Ultrasound/Phonophoresis Yes Iontophoresis Yes Eval/Re-Eval Yes Aquatic Therapy Yes Frequency Times per week 2x/wk Duration Number of Weeks 4 weeks Addendums This patient is a candidate for social No or vocational rehab? Patient/Guardian verbally acknowledges Yes understanding of treatment program and consents to further treatment? Patient/Guardian verbally acknowledges Yes understanding of diagnosis, prognosis and goals for treatment? Eval Complexity OT Charge 71276 - Low Complexity PHYSICIAN CERTIFICATION: I certify the specified therapy services for Nasreen Lowery are required, authorized, and reviewed every 30 days.
== END 2023-09-06 11:05 | disposition home or self-care (01) ==
LOC: OT 11:00
PROVIDERS: Visit Provider Nurse Practitioner Family
DX: M79.601 Pain in right arm (principal)
CPT/HCPCS: 97010; 97014; 97035; 97110; 97140; 97165; 97530; G0283

== ENCOUNTER 2024-10-30 14:01 | Outpatient (CLI) | payer MEDICARE, SELFPAY ==
[2024-10-30 14:38] LABS: Basophils % 0.5 % (0.1-2.0); Eosinophils # 0.2 Kmm3 (0.0-0.4); Eosinophils % 1.9 % (0.1-12.0); Hematocrit 46.6 % (37.0-47.0); Hemoglobin 15.3 g/dL (12.2-16.2); Immature Granulocytes # 0.04 10^3uL; Immature Granulocytes % 0.5 %; Lymphocytes # 1.9 K/mm3 (0.7-4.5); Lymphocytes % 22.1 % (10-50); Mean Corpuscular HGB Conc 32.8 g/dL (31.8-35.4); Mean Corpuscular Volume 91.4 fl (81-99); Mean Platelet Volume 10.2 fl (7.4-10.4); Monocytes # 0.6 K/mm3 (0.1-1.0); Monocytes % 7.1 % (1.7-9.3); Neutrophils % 67.9 % (37.0-80.0); Nucleated Red Blood Cells # 0 10^3/uL; Nucleated Red Blood Cells % 0 %; Platelet Count 295 K/mm3 (142-424); Red Cell Distribution Width 13.9 % (11.5-17.5); White Blood Count 8.8 K/mm3 (4.8-10.8)
[2024-10-30 15:20] LABS: Alanine Aminotransferase 19 U/L (12-78); Albumin Level 4.2 g/dl (3.5-5.0); Alkaline Phosphatase 92 U/L (38-126); Anion Gap 11.9 mEq/L (5-15); Aspartate Amino Transferase 22 U/L (14-36); Bilirubin,Direct 0.1 mg/dl (0.0-0.4); Bilirubin,Indirect 0.7 mg/dL (0.0-0.9); Bilirubin,Total 0.8 mg/dl (0.2-1.3); Bilirubin,Unconjugated 0.7 mg/dL (0.0-1.1); Blood Urea Nitrogen 13 mg/dl (7-17); Calcium 9.9 mg/dl (8.4-10.2); Carbon Dioxide 29 mmol/L (22.0-30.0); Chloride 103 mmol/L (98-107); Chol/HDL Ratio 3.8 (1-3.5); Cholesterol 211 mg/dl (140-200); Estimated Glomerular Filt Rate 82 ml/min (>60); GFR (African American) 100 ML/MIN (>60); Glucose 106 mg/dl (74-100); HDL Cholesterol 55 mg/dl (40-60); Magnesium 1.8 mg/dl (1.6-2.3); Potassium 3.9 mmoL/L (3.5-5.1); Sodium 140 mmol/L (136-145); Total Protein,Serum 6.3 g/dl (6.3-8.2); Triglycerides 172 mg/dl (30-150); VLDL Cholesterol 34 mg/dL (0-40)
[2024-10-30 15:31] LABS: Direct LDL Cholesterol 118.02 mg/dL (100-129)
[2024-10-30 15:51] LABS: Thyroid Stimulating Hormone 1.21 uIU/mL (0.465-4.68)
== END 2024-10-30 23:59 | disposition home or self-care (01) ==
LOC: LAB 14:03
PROVIDERS: PCP Nurse Practitioner Family; Visit Provider Physician Assistant
DX: I10 Essential (primary) hypertension (principal)
CPT/HCPCS: 36415; 80048; 80061; 80076; 83735; 84439; 84443; 85025

== ENCOUNTER 2025-05-09 13:35 | Outpatient (CLI) | payer MEDICARE, SELFPAY ==
--- NOTE | 2025-05-09 14:00 | MM_ITS ---
PROCEDURE INFORMATION: Exam: MG Bilateral Screening 3D Mammography Exam date and time: 05/09/2025 1:54 PM Age: 69 years old Clinical indication: Screening exam. TECHNIQUE: Imaging protocol: Bilateral Screening tomosynthesis and 2D mammography including computer-aided detection (CAD) when performed. COMPARISON: 1. MG MAMMO SCREENING DIGITAL TOMOSYNTHESIS BILATERAL W CAD 06/03/2021 1:50 PM 2. MG MAMMO SCREENING DIGITAL TOMOSYNTHESIS BILATERAL W CAD 04/14/2020 3:38 PM FINDINGS: MAMMOGRAPHY: Breast composition: There are scattered areas of fibroglandular density. Mass: No suspicious masses. Architectural distortion: None. Calcifications: No suspicious calcifications. Asymmetric density: None. Skin thickening: None. Axillary adenopathy: None. IMPRESSION: No mammographic evidence of malignancy. Annual screening is recommended unless otherwise clinically indicated. ASSESSMENT: BI-RADS Category 1: Negative.
== END 2025-05-09 23:59 | disposition home or self-care (01) ==
LOC: RAD 13:35
PROVIDERS: PCP Nurse Practitioner Family; Visit Provider Nurse Practitioner Family
DX: Z12.31 Encounter for screening mammogram for malignant neoplasm of breast (principal); R92.323 Mammographic fibroglandular density, bilateral breasts
CPT/HCPCS: 77063; 77067